=== PATIENT | female | born 1990 | race Caucasian/White ===

== ENCOUNTER 2021-05-17 13:46 | Outpatient (CLI) | payer OTHER, BC, SELFPAY ==
[2021-05-17] MEDS: BETAMETHASONE SOD PHOS/ACETATE 30 MG/5 ML VIAL 12 MG IM (14:17)
== END 2021-05-17 13:47 | disposition home or self-care (01) ==
LOC: ANHOBOP 13:57
PROVIDERS: PCP Physician Assistant; Visit Provider Obstetrics & Gynecology
DX: Z34.90 Encounter for supervision of normal pregnancy, unspecified, unspecified trimester (principal); Z3A.00 Weeks of gestation of pregnancy not specified
CPT/HCPCS: 96372; J0702

== ENCOUNTER 2021-05-18 13:56 | Outpatient (CLI) | payer OTHER, BC, SELFPAY ==
[2021-05-18] MEDS: BETAMETHASONE SOD PHOS/ACETATE 30 MG/5 ML VIAL 12 MG IM (14:11)
== END 2021-05-18 13:57 | disposition home or self-care (01) ==
LOC: ANHOBOP 14:02
PROVIDERS: PCP Physician Assistant; Visit Provider Obstetrics & Gynecology
DX: Z34.90 Encounter for supervision of normal pregnancy, unspecified, unspecified trimester (principal); Z3A.00 Weeks of gestation of pregnancy not specified
CPT/HCPCS: 96372; J0702

== ENCOUNTER 2021-06-17 15:44 | Outpatient (CLI) | payer OTHER, BC, SELFPAY ==
[2021-06-17 16:38] LABS: Hematocrit 35.7 % (37.0-47.0); Hemoglobin 11.3 g/dL (12.0-15.0); Mean Corpuscular HGB Conc 31.7 g/dl (32-36); Mean Corpuscular Volume 88.4 fl (80-100); Mean Platelet Volume 9.3 fl (7.4-10.4); Platelet Count Result 393 k/mm3 (150-375); Red Blood Count 4.04 M/mm3 (4.2-5.4); Red Cell Distribution Width 13.9 % (11.5-14.5); White Blood Count 12.8 K/mm3 (4.5-10.0)
[2021-06-18 09:26] LABS: Rapid Plasma Reagin Non-Reactive (NonReactive)
== END 2021-06-17 15:45 | disposition home or self-care (01) ==
PROVIDERS: PCP Physician Assistant; Visit Provider Obstetrics & Gynecology
DX: Z34.93 Encounter for supervision of normal pregnancy, unspecified, third trimester (principal); Z3A.00 Weeks of gestation of pregnancy not specified
CPT/HCPCS: 36415; 85027; 86592; 86850; 86900; 86901

== ENCOUNTER 2021-06-18 05:28 | Inpatient (IN) | payer OTHER, BC, SELFPAY ==
--- NOTE | 2021-06-13 16:02 | PC.NURSE ---
Verified with OR schedule and patient --C/S on 06/18/21 at 0730 for placenta previa Patient given requisition for lab draw on 06/17/21
[2021-06-18] VITALS (62 sets, daily range): BP systolic 78–136; BP diastolic 49–122; PULSE 74–212; RESP 16–18; TEMP 36.6–37.2; O2SAT 98–100; BMI 33.0
--- NOTE | 2021-06-18 06:05 | LDADM ---
This patient, Bridget De La Torre, was admitted to Labor/Delivery/Recovery 120 on 06/18/21 at 05:28. Plans for section, pain management and were discussed with patient. Patient/family oriented to hospital policies and general routines including ID bracelet, bed and alarms, visiting hours, pain management, procedures, bathroom and other care routines, personal items, smoking policy, room service/diet and guest tray routines, security routines, and visiting hours. Patient/Family are encouraged to report perceived risks to care and to ask questions if they do not understand what they are told or what they should do. See OBIX for further documentation.
[2021-06-18] MEDS: LACTATED RINGERS 1,000 ML 125 ML IV CONT ×2 (06:10→07:30)
--- NOTE | 2021-06-18 06:21 | LDADM ---
This patient, Bridget De La Torre, was admitted to Labor/Delivery/Recovery 120 on 06/18/21 at 05:28. Plans for labor, pain management and were discussed with patient. Patient/family oriented to hospital policies and general routines including ID bracelet, bed and alarms, visiting hours, pain management, procedures, bathroom and other care routines, personal items, smoking policy, room service/diet and guest tray routines, security routines, and visiting hours. Patient/Family are encouraged to report perceived risks to care and to ask questions if they do not understand what they are told or what they should do. See OBIX for further documentation.
--- NOTE | 2021-06-18 06:58 | WPDANESEPPF ---
Anes - Initial Pre Proc Eval Procedure: Operation Date: 06/18/21 07:30 Proposed Procedures p Repeat Section - Deniz Fan MD Date/Time: 06/18/21 06:58 Surgeon: Deniz Fan MD Pre Op Diagnosis: c/s Patient Data Age: 31 Gender: F Height: 1.57 m Weight: 82 kg Last Vital Signs Pulse 96 06/18/21 06:15 BP 122/81 06/18/21 06:15 Allergies Allergy/AdvReac Type Severity Reaction Status Date / Time No Known Drug Allergies Allergy unknown Verified 06/13/21 15:41 Home Medications Medication Instructions Recorded Confirmed Type vitamins-iron fumarate 65 1 tablet PO DAILY 04/29/21 06/18/21 History mg iron-folic acid 1 mg tablet sertraline 50 mg tablet 50 mg PO DAILY 04/29/21 06/18/21 History ferrous sulfate 325 mg (65 mg 325 mg PO BID tablet 06/03/21 06/18/21 History iron) tablet,delayed release Patient hx anesthesia problems: none Family hx anesthesia problems: none Results Review: All pre-operative results and documents have been reviewed as part of the pre-operative evaluation. [facility] Past Medical History Medical History Anxiety and depression History of HPV infection IBS (irritable bowel syndrome) Surgical History Surgical History H/O colposcopy with cervical biopsy (07/13/18) colposcopy Benign H/O colposcopy with cervical biopsy (01/27/17) colpo ; Benign H/O colposcopy with cervical biopsy (06/10/16) colposcopy ; Benign H/O colposcopy with cervical biopsy (04/24/15) colpo Benign H/O colposcopy with cervical biopsy (01/15/11) colpo TAMIA l History of bunionectomy of left great toe (04/19/12) Family History Family History Father Hypertension Deafness congenital Mother Autoimmune hepatitis Deafness in left ear Grandparent Graves disease Primary lung cancer Grandparent Pancreatic cancer Sibling Ulcerative colitis Social History Social History Smoking status: Never smoker Alcohol intake: never Substance use: never Additional living arrangements comments: spouse 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 Gender identity (if verbalized by the patient): Female Sexual Orientation (if Verbalized by the Patient): Straight or Heterosexual Spiritual care concerns: No Anes - Eval Final PreProcedure Day of Procedure 06/18/21 06:58 Patient weight: overweight Heart: regular rate and rhythm Lungs: clear to auscultation Airway: Mallampati scale class II Neurological: alert and oriented Last oral intake: >/= 8 hours ASA classification: II Emergent: no Anesthetic plan: proceed Anesthesia type and monitoring: regional spinal and standard monitoring Results Review: All pre-operative results and documents have been reviewed as part of the pre-operative evaluation. Informed Consent: The patient's anesthetic plan and its attendant risks and benefits were discussed with the patient/family/POA. Questions were solicited and answers provided to the satisfaction of the patient/family/POA.
[2021-06-18] MEDS: ceFAZolin 2 GM/D5W 50 ML 2 GM/50 ML BAG IVPB (07:19)
--- NOTE | 2021-06-18 07:20 | PM.IMHP ---
H&P: HPI History of Present Illness Date/Time: 06/18/21 07:20 31-year-old 1 female presents at 37 weeks for primary delivery. She has had placenta previa throughout the though no bleeding or any other issues. Also growth scans have normal. records are on the chart for review if needed. Chief Complaint: Review of Systems Review of Systems: All systems reviewed & are unremarkable except as noted in HPI and below PMFSH Past Medical History Medical History Anxiety and depression History of HPV infection IBS (irritable bowel syndrome) Surgical History Surgical History H/O colposcopy with cervical biopsy (07/13/18) colposcopy Benign H/O colposcopy with cervical biopsy (01/27/17) colpo ; Benign H/O colposcopy with cervical biopsy (06/10/16) colposcopy ; Benign H/O colposcopy with cervical biopsy (04/24/15) colpo Benign H/O colposcopy with cervical biopsy (01/15/11) colpo TAMIA l History of bunionectomy of left great toe (04/19/12) Family History Family History Father Hypertension Deafness congenital Mother Autoimmune hepatitis Deafness in left ear Grandparent Graves disease Primary lung cancer Grandparent Pancreatic cancer Sibling Ulcerative colitis Social History Social History Smoking status: Never smoker Alcohol intake: never Substance use: never Additional living arrangements comments: spouse 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 Gender identity (if verbalized by the patient): Female Sexual Orientation (if Verbalized by the Patient): Straight or Heterosexual Spiritual care concerns: No Meds Home Medications and Allergies Home Medications Medication Instructions Recorded Confirmed Type vitamins-iron fumarate 65 1 tablet PO DAILY 04/29/21 06/18/21 History mg iron-folic acid 1 mg tablet sertraline 50 mg tablet 50 mg PO DAILY 04/29/21 06/18/21 History ferrous sulfate 325 mg (65 mg 325 mg PO BID tablet 06/03/21 06/18/21 History iron) tablet,delayed release Allergies Allergy/AdvReac Type Severity Reaction Status Date / Time No Known Drug Allergies Allergy unknown Verified 06/13/21 15:41 Vital Signs Vital Signs - 24 hr 06/18/21 05:58 06/18/21 06:00 06/18/21 06:15 Pulse Rate 102 H 102 H 96 Blood Pressure 118/64 114/78 122/81 Exam Const: General: cooperative, healthy appearing and comfortable Resp: Effort & Inspection: normal respiratory effort Auscultation: clear to auscultation bilaterally Cardio: Rate: regular rate Rhythm: regular rhythm GI: Inspection: normal to inspection Auscultation: normal bowel sounds : External Female Exam: normal external appearance Speculum Exam - Vagina: normal appearance of the vagina Bimanual exam- vagina & uterus: enlarged ( 36cm heart tones 140) Assessment and Plan Assessment and plan (1) 37 weeks gestation of : Code(s): Z3A.37 - 37 weeks gestation of Status: Acute (2) Placenta previa affecting delivery: Code(s): O44.00 - Complete placenta previa NOS or without hemorrhage, unspecified trimester Status: Acute Additional Plan proceed with primary delivery.
--- NOTE | 2021-06-18 07:23 | WPDHPUPDATE1 ---
History and Physical Update Update Date/Time: 06/18/21 07:23 History and Physical has been reviewed, including an updated exam of the patient. There are NO changes in the patient's condition. Risks, benefits, and alternatives have been discussed and questions answered. Patient agrees to proceed with procedure.
--- NOTE | 2021-06-18 08:04 | PM.OBPRVD ---
OB - Delivery Note Procedure Procedure: Procedures Operation Date: 06/18/21 07:30 <No data on this case meets the specified criteria> Events: Placenta Previa Route of delivery: Specimen: Yes Quantitative Blood Loss (ml): 1,050 Anesthesia type: Epidural Disposition: PACU Narrative: Patient prepped and draped usual manner for this procedure. Pfannenstiel incision was made carried down to the fascia which was then extended bilaterally the length of the skin incision. Superiorly and inferiorly dissected away from the rectus muscles in the peritoneum was readily entered. Bladder flap was developed without difficulty uterus was scored with placenta entered and the lower segment extended bilaterally the length of the lower segment. Vertex was then delivered without difficulty and placenta was removed. Once placenta was removed the lower segment was visualized and care was taken to remove all segments of the placenta. Being assured that there was no remaining tissue and no membranes and the uterus was well contracted the uterus was then closed using 0 Monocryl in a running interlocking manner with good approximation hemostasis noted. Small area of oozing at the right edge which was rendered hemostatic with a [id number] Vicryl as well. Uterus returned to the abdomen gutters were cleared of serosanguineous fluid and clots and the fascia was then approximated using 0 Vicryl from left angle midline right angle to the midline. Subcutaneous tissue was approximated using 0 plain suture and walker were then used to close the skin this point seizure was considered terminated patient tolerated procedure well. [place] Baby Weeks of gestation at delivery: 37 Infant gender: Female Weight (pounds): 6 Weight (ounces): 12 presentation: vertex Placenta delivery description: Manual Removal Cord Vessel Description: 3 Vessels score one minute: 9 score five minutes: 9 AMG Delivery Billing Delivery Delivery: Delivery Charge
[2021-06-18 08:15] LABS: HIV 1/2 Ab P24 Ag Result Negative (Negative)
[2021-06-18] MEDS: OXYTOCIN 30 UNITS/NS 500 ML 30 UNITS/500 ML BAG 125 UNITS IV CONT (08:45)
[2021-06-18] MEDS: KETOROLAC 30 MG/ML VIAL (*BKC) IV PUSH (13:16)
--- NOTE | 2021-06-18 14:01 | PC.NURSE ---
[id number] Introductions made and consulted with patient to assess needs related to . Mother led conversation with her desire to breastfeed but isn't opposed to formula. Mother holds her infant skin to skin. Encouraged mother to touch to stimulate wakefulness and not sleep. Educated parents on the benefits of hand expression, nipple stretching, and milk production. Mother reclined and relaxed asked father of infant to hand express colostrum. Scant drops of colostrum were fed to with a gloved finger. Reviewed good handwashing when working with infant, breast, nipples and how to protect the nipples with a deep latch. Encouraged understanding the benefits of skin to skin, responding to feeding cues for on demand feedings, frequencies of feeding 8-12 times in 24 hours (approximately 2-3 hours), duration of feedings, milk production, intake/output feeding sheet and signs of adequate intake. Risks were discussed regarding infant being 37 EGA and how that pertains to latching and milk production. Discussed stimulating infant with skin to skin, hand expressing colostrum, touch and talking to infant to encourage eating at the breast. Reviewed positioning and alignment, supporting breast, off-centered (asymmetrical latch) and leading with the chin with big open wide gape. Infant doesn't show signs of effective attempts to latch to breast in football or cross cradle position with father of baby holding the maternal breast. RN encouraged mother to hold her baby to the breast and demonstrates the need for more practice. Resources used to facilitate learning were used from the visual handout/ tool/mom and baby guide. Mother voiced understanding responding to feeding cues, may need to stimulating infant approximately 2-3 hours from the start of the last feeding, calling for assistance if the infant does not latch or there discomfort . Reported to primary RN. [id number] Breast pump provided due to ineffective . Reviewed information regarding pump care, hand washing, nipple care and pumping 8 times in 24 hours (1-2 at night) for 10-15 minutes. Collection and storage of breastmilk per mom and baby guide. Encouraged mom to place infant skin to skin, breast massage and use hand expression and/or a breast pump in a relaxing atmosphere. Reviewed recording pumping schedule on the feeding sheet. Referred to the mom and baby guide as a resource and when to call a provider. Reported to primary RN.
[2021-06-19] VITALS: BP 112/64; PULSE 78; RESP 16; TEMP 37.2; O2SAT 99
[2021-06-19] MEDS: IBUPROFEN 600 MG TABLET PO ×3 (00:16→17:43)
[2021-06-19] MEDS: HYDROcodone/acetaminophen (*CRX) 5-325 MG TABLET 1 TAB PO ×3 (03:13→13:00)
[2021-06-19 03:35] VITALS: BP 107/62; PULSE 82; RESP 16; TEMP 36.7; O2SAT 97
[2021-06-19 06:12] LABS: Basophils Percent Auto 0.2 % (0.2-1.2); Eosinophils Percent Auto 0.2 % (0-4.4); Hematocrit 23.3 % (37.0-47.0); Hemoglobin 7.4 g/dL (12.0-15.0); Immature Granulocyte Percent A 0.7 % (0-0.5); Lymphocytes Absolute Auto 3.01 K/mm3 (0.9-3.2); Lymphocytes Percent Auto 22.2 % (18.3-44.2); Mean Corpuscular HGB Conc 31.8 g/dl (32-36); Mean Corpuscular Hemoglobin 28.2 pg (26-34); Mean Corpuscular Volume 88.9 fl (80-100); Mean Platelet Volume 9.6 fl (7.4-10.4); Monocytes Absolute Auto 0.8 K/mm3 (0.1-0.6); Monocytes Percent Auto 6.2 % (2.6-8.5); Neutrophils Absolute Auto 9.5 K/mm3 (1.3-6.7); Neutrophils Percent Auto 70.5 % (45.5-73.1); Platelet Count Result 283 k/mm3 (150-375); Red Blood Count 2.62 M/mm3 (4.2-5.4); White Blood Count 13.5 K/mm3 (4.5-10.0)
--- NOTE | 2021-06-19 07:23 | PM.OBPNVD ---
OB - PN: Subj Subjective Date/time seen: 06/19/21 07:23 Diet tolerated/some ambulation. No sob/cp/dizzy. Overall doing well. OB - PN: Obj Data Labs CBC & Chem 7: 06/19/21 03:40 Labs: Laboratory Results - last 24 hr 06/18/21 06/19/21 07:05 03:40 WBC 13.5 H RBC 2.62 L Hgb 7.4 L D Hct 23.3 L MCV 88.9 MCH 28.2 MCHC 31.8 L RDW 14.0 Plt Count 283 MPV 9.6 Immature Gran % (Auto) 0.7 H Neut % (Auto) 70.5 Lymph % (Auto) 22.2 [place] % (Auto) 6.2 Eos % (Auto) 0.2 Baso % (Auto) 0.2 Lymph # (Auto) 3.01 [place] # (Auto) 0.8 H Eos # (Auto) 0.0 Baso # (Auto) 0.0 Abs Immat Gran (auto) 0.10 H Absolute Neuts (auto) 9.5 H Absolute Nucleated RBC 0.0 Nucleated RBC % 0.0 HIV 1&2 Ab/P24 Ag 4thGn Negative OB - PN A/P Plan day: 1 Comments: hct drop as expected with EBL from section. Will monitor symptomatically. Time Spent With Patient Time: Total time spent is greater than 50% in coordination of care (as documented) at patient's floor/unit and/or counseling patient: Time with patient: less than 15 minutes Exam Const: General: cooperative, healthy appearing and comfortable GI: Inspection: incision (bandage dry) Auscultation: normal bowel sounds
[2021-06-19 08:00] VITALS: BP 118/77; PULSE 88; RESP 18; TEMP 36.7
[2021-06-19] MEDS: FERROUS SULFATE 324 MG TABLET PO ×2 (08:34→17:44)
[2021-06-19] MEDS: DOCUSATE SODIUM 100 MG CAPSULE PO ×2 (08:34→17:44)
[2021-06-19] MEDS: POLYSACCHARIDE IRON COMPLEX 150 MG CAPSULE PO ×2 (08:34→17:44)
[2021-06-19] MEDS: MULTIVIT/MIN/PREN/FOL AC/IRON TABLET 1 TAB PO (08:34)
[2021-06-19] MEDS: SERTRALINE HCL 50 MG TABLET PO (08:34)
--- NOTE | 2021-06-19 11:24 | WPDANLDNPN2 ---
Anes-Prog Note L&D-Neuraxial Date/Time: 06/19/21 11:24 Neuraxial medications: intrathecal PF morphine Opiod-related complaints: none Patient feedback: Patient satisfied with post-operative pain management.
--- NOTE | 2021-06-19 11:24 | WPDANLDPN2 ---
Anes-Prog Note L&D Date/Time: 06/19/21 11:24 Comfortable throughout: section Neuraxial method: spinal Epidural/Spinal procedure site: clean & non-tender Neuro status: Neuro function grossly intact. Cardiovascular status: normal Respiratory status: normal Airway patency: baseline Mental status: baseline Post-Op hydration status: normal Vital Signs: Last Vital Signs Temp 36.7 C 06/19/21 08:00 Pulse 88 06/19/21 08:00 Resp 18 06/19/21 08:00 BP 118/77 06/19/21 08:00 Pulse Ox 97 06/19/21 03:35 Pain score (VAS): 0 I/O: Intake & Output 06/18/21 06/19/21 06/19/21 23:59 07:59 15:59 Intake Total 300 600 400 Output Total 650 1950 Balance -350 -1350 400 Post-procedural complaints: none Patient feedback: Patient satisfied with anesthetic care.
--- NOTE | 2021-06-19 15:03 | PC.NURSE ---
Education given, questions answered and mom and baby guide referred to between [phone].
[2021-06-19] MEDS: HYDROcodone/acetaminophen (*CRX) 10-325 MG TABLET 1 TAB PO ×2 (17:44→20:47)
[2021-06-19] MEDS: SIMETHICONE 80 MG TAB.CHEW PO (17:44)
[2021-06-19 20:28] VITALS: BP 113/74; PULSE 92; RESP 18; TEMP 36.6; O2SAT 100
[2021-06-20] MEDS: HYDROcodone/acetaminophen (*CRX) 5-325 MG TABLET 1 TAB PO ×2 (03:14→07:15)
[2021-06-20] MEDS: IBUPROFEN 600 MG TABLET PO ×3 (07:15→16:22)
[2021-06-20] MEDS: DOCUSATE SODIUM 100 MG CAPSULE PO (07:16)
[2021-06-20] MEDS: MULTIVIT/MIN/PREN/FOL AC/IRON TABLET 1 TAB PO (07:17)
[2021-06-20] MEDS: SERTRALINE HCL 50 MG TABLET PO (07:17)
[2021-06-20] MEDS: SIMETHICONE 80 MG TAB.CHEW PO ×2 (07:17→11:30)
[2021-06-20 08:00] VITALS: PULSE 90; RESP 18; O2SAT 99
[2021-06-20 08:05] VITALS: BP 107/70; PULSE 90; RESP 18; TEMP 37.2; O2SAT 99
[2021-06-20] MEDS: HYDROcodone/acetaminophen (*CRX) 10-325 MG TABLET 1 TAB PO ×3 (11:29→16:22)
--- NOTE | 2021-06-20 12:32 | PM.OBDSVD ---
DS: Admitting Diagnosis Discharge Date 06/20/2021 Admitting Diagnosis /placenta previa OB - DS: Summary OB Procedures : None OB Procedures Intrapartum: OB Procedures: : None Peripartum Data Procedures: Procedures Operation Date: 06/18/21 07:30 Actual Procedure Side Surgeon p Repeat Section Deniz Fan MD Time Spent with Patient Time attestation: Total time spent providing and/or coordinating discharge services: DS: Data Data Completed and Pending Pending studies at discharge: Pending at discharge 06/18/21 08:32 Surgical [PTH] Routine Discharge Plan Discharge Discharging Clinician: Deniz Fan Patient Disposition: Home, Self-Care Activity: as tolerated Diet: as tolerated Wound Care Instructions: incision open to air Discharge Instructions: walker out at postop hospital appt Patient Instructions: Antibiotic Form Stand Alone Forms: General Discharge Information Follow-up/Referrals: Deniz Fan MD [Physician] - 3 Weeks Discharge Medications: New hydrocodone-acetaminophen 5-325 mg Tablet 1 tablet PO Q3H Qty: 20 RF: 0 ibuprofen 600 mg Tablet 600 mg PO Q6H PRN (Reason: Cramping) Qty: 30 RF: 0 Continued sertraline 50 mg tablet 50 mg PO DAILY RF: 0 vit-iron fum-folic ac 65 mg iron- 1 mg tablet 1 tablet PO DAILY RF: 0 ferrous sulfate 325 mg (65 mg iron) tablet,delayed release (DR/EC) 325 mg PO BID RF: 0 Date of admission: 06/18/21 05:28 Primary Care Provider: Kerri,Yessica Admitting Provider: Deniz Fan Attending physician on admission: Deniz Fan Condition: Stable
[2021-06-20] MEDS: TETANUS,DIPHTHERIA,AC PERTUSSIS ADULT (0.5 ML) BOOSTRIX IM (15:24)
[2021-06-20] MEDS: MEASLES,MUMPS,RUBELLA VACCINE 0.5 ML VIAL SUB-Q (15:28)
[2021-06-23 11:09] VITALS: BP 139/78; PULSE 90; RESP 20; TEMP 36.9; O2SAT 100
== END 2021-06-20 16:37 | disposition home or self-care (01) | DRG 788 ==
LOC: ANHLDR 05:32 → ANHOB2 10:39
PROVIDERS: Admitting Provider Obstetrics & Gynecology; PCP Physician Assistant; Visit Provider Obstetrics & Gynecology
PROC: 10D00Z1 Extraction of Products of Conception, Low, Open Approach (ICD-10-PCS; CPT 59514; principal; 2021-06-18 07:30)
DX: O44.03 Complete placenta previa NOS or without hemorrhage, third trimester (principal); Z37.0 Single live birth; Z3A.37 37 weeks gestation of pregnancy; O99.62 Diseases of the digestive system complicating childbirth; K58.9 Irritable bowel syndrome, unspecified; O99.344 Other mental disorders complicating childbirth; F41.9 Anxiety disorder, unspecified; F32.A Depression, unspecified
CPT/HCPCS: 36415; 85025; 85027; 86592; 86703; 86850; 86900; 86901; 88307; 90710; 90715; A9270; G0432; J0131; J0690; J1885; J2274; J2590; J7120

== ENCOUNTER 2023-03-23 03:03 | Day surgery (SDC) | payer OTHER, SELFPAY ==
[2023-03-19 10:59] VITALS: BMI 23.8
--- NOTE | 2023-03-19 11:03 | PC.NURSE ---
Report to the Outpatient Waiting Room, entrance under the green pavilion located off [facility], at time 0630 on date 03/23/23. Planned Procedure Time: 0830. Time changes happen often and if your time is changed the preop area will call you the afternoon before. - You and your visitor will be asked to self-screen and do not enter if you have any COVID symptoms. - A mask is optional within the hospital at this time. Patients may have clear liquids (water, carbonated beverages, clear teas, apple juice) until 3 hours prior to surgery with a maximum of 20 ounces. - No food from midnight until time of surgery Take the following medications with a SIP of water the morning of surgery: WELLBUTRIN DO NOT STOP ANY OF YOUR OTHER PRESCRIPTION MEDICATIONS PRIOR TO SURGERY ?EXCEPT THE FOLLOWING Medications to discontinue per physician: N/A Date to take last dose: N/A Please no make-up, nail palestinian, hairspray, perfume, deodorant, or body powder the day of surgery. No jewelry (including any body piercings) or valuables the day of surgery, leave them at home. Please take a shower or bath the night before, or the morning of, surgery with an antibacterial soap. Wear comfortable, loose fitting clothing. Children are encouraged to wear pajamas. - Jewelry must be removed prior to entering the operating room. Rings and piercings that are not removed may be cut off. - The hospital will not accept responsibility for valuables. - Please leave all valuables, including medications, at home the day of surgery. If you are going home after surgery, a licensed rolloff truck driver must drive you home. - NO public transportation without another adult if you receive anesthesia. - We recommend that an adult stay with you for 24 hours following discharge. - We also recommend that you do not drive, make important decision, drink alcoholic beverages, or take any drugs that were not prescribed by your health care provider for at least 24 hours after your discharge time. Follow any additional instructions given to you from your surgeon. If you or anyone in your household have experienced Covid symptoms in the past week, please notify your surgeon or the nurse liaison at the phone number below for possible testing. Telephone instructions given to PT - [facility] [place] and asked if any additional questions and then verbalized understanding. Patient advised to call surgeon office or pre surgery nurse liaison [phone] if any additional questions.
[2023-03-23] VITALS (9 sets, daily range): BP systolic 119–155; BP diastolic 75–92; PULSE 73–96; RESP 14–18; TEMP 36.1–36.7; O2SAT 99–100
--- NOTE | 2023-03-23 06:27 | WPDANESEPP ---
Anes - Eval Pre Procedure Procedure: Operation Date: 03/23/23 08:30 Proposed Procedures p Bilateral Breast Mastopexy with GalaFlex - Simon Dobson MD Date/Time: 03/23/23 06:27 Pre Op Diagnosis: breast ptosis Patient Data Age: 33 Gender: F Height: 1.57 m Weight: 59 kg Allergies Allergy/AdvReac Type Severity Reaction Status Date / Time No Known Drug Allergies Allergy unknown Verified 03/19/23 10:58 Home Medications Medication Instructions Recorded Confirmed Type bupropion HCl 150 mg 24 hr tablet, 150 mg PO DAILY 03/19/23 03/19/23 History extended release Patient hx anesthesia problems: none Family hx anesthesia problems: none Results Review: All pre-operative results and documents have been reviewed as part of the pre-operative evaluation. [facility] Past Medical History Medical History Anxiety and depression History of HPV infection IBS (irritable bowel syndrome) Surgical History Surgical History Delivery by section (06/18/21) placenta previa H/O colposcopy with cervical biopsy (07/13/18) colposcopy Benign H/O colposcopy with cervical biopsy (01/27/17) colpo ; Benign H/O colposcopy with cervical biopsy (06/10/16) colposcopy ; Benign H/O colposcopy with cervical biopsy (04/24/15) colpo Benign H/O colposcopy with cervical biopsy (01/15/11) colpo TAMIA l History of bunionectomy of left great toe (04/19/12) Family History Family History Father Hypertension Deafness congenital Mother Autoimmune hepatitis Deafness in left ear Grandparent Graves disease Primary lung cancer Grandparent Pancreatic cancer Sibling Ulcerative colitis Social History Social History Smoking status: Never smoker Alcohol intake: current Drinks per week: 3 Substance use: never Substance use type: does not use Living arrangements: with family Additional living arrangements comments: spouse Occupation/Education: occupation 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
[2023-03-23] MEDS: LACTATED RINGERS 1,000 ML 30 ML IV CONT ×2 (07:03→11:26)
[2023-03-23 07:16] LABS: Urine Cotinine NEGATIVE
--- NOTE | 2023-03-23 07:17 | WPDHPUPDATE1 ---
History and Physical Update Update Date/Time: 03/23/23 07:17 History and Physical has been reviewed, including an updated exam of the patient. There are NO changes in the patient's condition. Risks, benefits, and alternatives have been discussed and questions answered. Patient agrees to proceed with procedure.
--- NOTE | 2023-03-23 07:17 | W.PM.PROC2 ---
Procedure Note - Detailed Date of Procedure 03/23/23 Pre-op Diagnosis breast ptosis Post-op Diagnosis Same Procedure Performed Bilateral mastopexy with Galaflex Surgeon Simon Dobson MD Anesthesia General Findings Inverted T Superior Medial Pedicle Galaflex Description of Procedure She is here today for bilateral breast mastopexy. Previously and again today the risks, benefits, alternatives were discussed in extensive detail. I wanted her to be very realistic about the risks involved as well as expectations. We discussed aftercare and what to monitor for. Made sure answered all of her questions to her satisfaction today and consent was obtained. Marked in the preoperative holding area with their verification. The patient was taken to the operating room placed supine on the operating table. Anesthesia was provided by anesthesiology. A surgical time-out was taken. She was prepped and draped in a standard sterile fashion. Eleven blade was utilized to make a stab incision and infiltrated with low volume tumescent solution. The breast was tailor tacked into place. I tailor tacked the breast into position. Placed her in a sitting position. Verified the nipple-areolar location based on preoperative planning as well as intraoperative observations and measurements in full agreement. She was placed supine. I de-epithelialized the pedicle. I then de-epithelialized the inferior breast tissue to create an autoaugmentation flap based on intercostal scale and skip car operator. I elevated medial and lateral tissue flaps as well for planned closure. The autoaugmentation flap was sutured to the chest wall with 2-0 PDS. Galaflex was soaking on the back table in a betadine solution. Trimmed and sutured into place with 2-0 Vicryl. I closed along the IMF with 2-0 Stratafix. Along the vertical with 2-0 PDS. I closed around the Kvng with 3-0 strata fix. 3-0 Monocryl along the vertical. 3-0 Stratafix along the IMF. I finally closed everything with running subcuticular 4-0 Monocryl and tissue glue. Fluffs and surgical bra were placed. Estimated Blood Loss 100 Drains No Packing No Pathology None sent Complications No immediate complications Condition Stable Disposition PACU
[2023-03-23] MEDS: SCOPOLAMINE 1.5 MG PATCH TRANSDERM (07:22)
[2023-03-23] MEDS: NACL 0.9% IRRIG POUR BOTTLE 900 ML, GENTAMICIN SULFATE INJ 160 MG, ceFAZolin 2 GM, POVI... IRRIGATION (08:17)
[2023-03-23] MEDS: ceFAZolin 2 GM/D5W 50 ML 2 GM/50 ML BAG IVPB (08:17)
[2023-03-23] MEDS: LACTATED RINGERS IRRIG 1,000 ML, LIDOCAINE HCL 1% LOCAL INJ 50 ML, EPINEPHrine HCL INJ ... INFILTRATE (08:17)
[2023-03-23] MEDS: TRANEXAMIC ACID 1,000MG/ISO100 1,000 MG/100 ML BAG 200 MG IVPB (08:25)
[2023-03-23] MEDS: fentaNYL CITRATE INJ (*CRX) 100 MCG/2 ML VIAL 25 MCG IV PUSH ×5 (11:26→12:06)
[2023-03-23] MEDS: oxyCODONE HCL (*CRX) 5 MG TAB IR PO (12:35)
== END 2023-03-23 13:28 | disposition home or self-care (01) ==
PROVIDERS: PCP Physician Assistant; Visit Provider Surgery Plastic and Reconstructive Surgery
PROC: (CPT 19316; principal; 2023-03-23 08:30)
DX: Z41.1 Encounter for cosmetic surgery (principal); F41.8 Other specified anxiety disorders; K58.9 Irritable bowel syndrome, unspecified; Z98.890 Other specified postprocedural states; Z80.1 Family history of malignant neoplasm of trachea, bronchus and lung; Z80.0 Family history of malignant neoplasm of digestive organs
CPT/HCPCS: 19316; 15777; 80307; A9270; J0171; J0690; J1100; J1170; J1580; J2250; J2405; J2704; J3010; J7120

== ENCOUNTER 2023-12-06 02:16 | Day surgery (SDC) | payer OTHER, BC, SELFPAY ==
--- NOTE | 2023-12-01 10:27 | PC.NURSE ---
Report to the Outpatient Waiting Room, entrance under the green pavilion located off [facility], at time __0630 on date ____12/06/23___. Planned Procedure Time: ____829____. Time changes happen often and if your time is changed the preop area will call you the afternoon before. - You and your visitor will be asked to self-screen and do not enter if you have any COVID symptoms. - A mask is optional within the hospital at this time. Patients may have clear liquids (water, carbonated beverages, clear teas, apple juice) until 3 hours prior to surgery with a maximum of 20 ounces. - No food from midnight until time of surgery Take the following medications with a SIP of water the morning of surgery: Wellbutin if needed DO NOT STOP ANY OF YOUR OTHER PRESCRIPTION MEDICATIONS PRIOR TO SURGERY ?EXCEPT THE FOLLOWING Medications to discontinue per physician NA Date to take last dose Please no make-up, nail frisian, hairspray, perfume, deodorant, or body powder the day of surgery. No jewelry (including any body piercings) or valuables the day of surgery, leave them at home. Please take a shower or bath the night before, or the morning of, surgery with an antibacterial soap. Wear comfortable, loose fitting clothing. Children are encouraged to wear pajamas. - Jewelry must be removed prior to entering the operating room. Rings and piercings that are not removed may be cut off. - The hospital will not accept responsibility for valuables. - Please leave all valuables, including medications, at home the day of surgery. If you are going home after surgery, a licensed class a truck driver must drive you home. - NO public transportation without another adult if you receive anesthesia. - We recommend that an adult stay with you for 24 hours following discharge. - We also recommend that you do not drive, make important decision, drink alcoholic beverages, or take any drugs that were not prescribed by your health care provider for at least 24 hours after your discharge time. Follow any additional instructions given to you from your surgeon. If you or anyone in your household have experienced Covid symptoms in the past week, please notify your surgeon or the nurse liaison at the phone number below for possible testing. Telephone instructions given to ____patient and asked if any additional questions and then verbalized understanding. Patient advised to call surgeon office or pre surgery nurse liaison [phone] if any additional questions.
[2023-12-01 10:35] VITALS: BMI 25.6
--- NOTE | 2023-12-05 21:11 | PM.IMHP ---
H&P: HPI History of Present Illness Date/Time: 12/05/23 21:11 Chief Complaint: TAMIA 2-3 Narrative: Bridget is a 33yo P1001 who presents for LEEP. Her last two paps had been NILM/HPV +. This year's pap was LGSIL/HPV +. She had a colpo 11/11/23 which showed TAMIA 2-3 on ECC; TAMIA 1 on biopsies at 3, 6, 9 o'clock. She has had the Gardasil series. has vasectomy. Review of Systems Constitutional: Constitutional: Denies chills, Denies fever(s) and Denies headache(s) Eyes: Eyes: Denies change in vision ENT: Denies dizziness and Denies headache(s) Cardiovascular: Cardiovascular: Denies chest pain and Denies dyspnea Respiratory: Respiratory: Denies cough and Denies dyspnea Gastrointestinal: Gastrointestinal: Denies abdominal pain and Denies change in stool character Genitourinary: Genitourinary: Denies abnormal menses, Denies pelvic pain, Denies vaginal discharge, Denies vaginal odor and Denies vaginal pruritus Neurologic: Denies dizziness and Denies headache(s) Psychiatric: Psychiatric: Denies anxiety and Denies depression [facility] Past Medical History Medical History (Updated 12/05/23 @ 21:16 by Jen Melendez MD) Anxiety and depression History of HPV infection IBS (irritable bowel syndrome) Surgical History Surgical History Delivery by section (06/18/21) placenta previa H/O colposcopy with cervical biopsy (07/13/18) colposcopy Benign H/O colposcopy with cervical biopsy (01/27/17) colpo ; Benign H/O colposcopy with cervical biopsy (06/10/16) colposcopy ; Benign H/O colposcopy with cervical biopsy (04/24/15) colpo Benign H/O colposcopy with cervical biopsy (01/15/11) colpo TAMIA l History of bunionectomy of left great toe (04/19/12) S/P bilateral breast reduction Family History Family History Father Hypertension Deafness congenital Mother Autoimmune hepatitis Deafness in left ear Grandparent Graves disease Primary lung cancer Grandparent Pancreatic cancer Sibling Ulcerative colitis Social History Social History (Updated 09/16/23 @ 13:33 by Sophia Walden MA) Smoking status: Never smoker Alcohol intake: current Drinks per week: 3 Substance use: never Substance use type: does not use Do You Feel Safe in your Home?: Yes Lack of Transportation: No Lack of Food: Never True Current Housing: I Have Housing Concerned About Future Housing: No Difficulty Paying Gas/Electric Bills: No Difficulty Paying for Meds: No Currently Unemployed: No Education: Associate Degree Difficulty w/ Childcare or Family Care: No Living arrangements: with family Additional living arrangements comments: spouse Occupation/Education: occupation 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 Gender identity (if verbalized by the patient): Female Sexual Orientation (if Verbalized by the Patient): Straight or Heterosexual Spiritual care concerns: No Meds Home Medications and Allergies Home Medications Medication Instructions Recorded Confirmed Type bupropion HCl 150 mg 24 hr tablet, 150 mg PO DAILY 03/19/23 12/01/23 History extended release Allergies Allergy/AdvReac Type Severity Reaction Status Date / Time No Known Drug Allergies Allergy unknown Verified 12/01/23 10:22 Exam Const: General: cooperative, healthy appearing, comfortable and no acute distress Orientation/consciousness: patient oriented x3 Resp: Effort & Inspection: normal respiratory effort Cardio: Rate: regular rate GI: Inspection: normal to inspection GI Palp: No abdominal tenderness and Yes Soft to palpation : Other: deferred to OR Skin: General skin exam: normal color Neuro: General: patient oriented x3 Extrem: General: normal to inspection Psych: Appearance: grossly normal Affect: normal affect Attitude: cooperative Assessment
[2023-12-06 07:00] VITALS: BP 159/90; PULSE 94; RESP 14; TEMP 36.5; O2SAT 100
[2023-12-06] MEDS: LACTATED RINGERS 1,000 ML 30 ML IV CONT (07:00)
[2023-12-06] MEDS: ACETAMINOPHEN 500 MG TABLET 1000 MG PO (07:00)
--- NOTE | 2023-12-06 07:14 | WPDHPUPDATE1 ---
History and Physical Update Update Date/Time: 12/06/23 07:14 History and Physical has been reviewed, including an updated exam of the patient. There are NO changes in the patient's condition. Risks, benefits, and alternatives have been discussed and questions answered. Patient agrees to proceed with LEEP, top hat, and ECC. .
--- NOTE | 2023-12-06 07:42 | WPDANESEPPF ---
Anes - Initial Pre Proc Eval Procedure: Operation Date: 12/06/23 08:30 Proposed Procedures p Loop Electrical Excision Procedure - Jen Melendez MD Date/Time: 12/06/23 07:42 Surgeon: Jen Melendez MD Pre Op Diagnosis: Cervical Dysplasia Patient Data Age: 33 Gender: F Height: 1.57 m Weight: 63.6 kg Allergies Allergy/AdvReac Type Severity Reaction Status Date / Time No Known Drug Allergies Allergy unknown Verified 12/01/23 10:22 Home Medications Medication Instructions Recorded Confirmed Type bupropion HCl 150 mg 24 hr tablet, 150 mg PO DAILY 03/19/23 12/01/23 History extended release Patient hx anesthesia problems: none Family hx anesthesia problems: none Results Review: All pre-operative results and documents have been reviewed as part of the pre-operative evaluation. [facility] Past Medical History Medical History (Updated 12/05/23 @ 21:16 by Jen Melendez MD) Anxiety and depression History of HPV infection IBS (irritable bowel syndrome) Surgical History Surgical History Delivery by section (06/18/21) placenta previa H/O colposcopy with cervical biopsy (07/13/18) colposcopy Benign H/O colposcopy with cervical biopsy (01/27/17) colpo ; Benign H/O colposcopy with cervical biopsy (06/10/16) colposcopy ; Benign H/O colposcopy with cervical biopsy (04/24/15) colpo Benign H/O colposcopy with cervical biopsy (01/15/11) colpo TAMIA l History of bunionectomy of left great toe (04/19/12) S/P bilateral breast reduction Family History Family History Father Hypertension Deafness congenital Mother Autoimmune hepatitis Deafness in left ear Grandparent Graves disease Primary lung cancer Grandparent Pancreatic cancer Sibling Ulcerative colitis Social History Social History (Updated 09/16/23 @ 13:33 by Sophia Walden MA) Smoking status: Never smoker Alcohol intake: current Drinks per week: 3 Substance use: never Substance use type: does not use Do You Feel Safe in your Home?: Yes Lack of Transportation: No Lack of Food: Never True Current Housing: I Have Housing Concerned About Future Housing: No Difficulty Paying Gas/Electric Bills: No Difficulty Paying for Meds: No Currently Unemployed: No Education: Associate Degree Difficulty w/ Childcare or Family Care: No Living arrangements: with family Additional living arrangements comments: spouse Occupation/Education: occupation 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 Gender identity (if verbalized by the patient): Female Sexual Orientation (if Verbalized by the Patient): Straight or Heterosexual Spiritual care concerns: No Anes - Eval Final PreProcedure Day of Procedure 12/06/23 07:42 Patient weight: normal Heart: regular rate and rhythm Lungs: clear to auscultation Airway: Mallampati scale class II Neurological: alert and oriented Last oral intake: >/= 8 hours ASA classification: II Emergent: no Anesthetic plan: proceed Anesthesia type and monitoring: general GIVS and standard monitoring Results Review: All pre-operative results and documents have been reviewed as part of the pre-operative evaluation. Informed Consent: The patient's anesthetic plan and its attendant risks and benefits were discussed with the patient/family/POA. Questions were solicited and answers provided to the satisfaction of the patient/family/POA.
[2023-12-06 07:57] LABS: BEDSIDEPREGUCG Negative
[2023-12-06] MEDS: IODINE/POTASSIUM IODIDE 8 ML SOLUTION TOPICAL (08:28)
[2023-12-06] MEDS: BUPIVACAINE/EPINEPHRINE 0.5% 10 ML VIAL INFILTRATE (08:28)
--- NOTE | 2023-12-06 08:58 | W.PM.PROC2 ---
Procedure Note - Detailed Date of Procedure 12/06/23 Pre-op Diagnosis Cervical Dysplasia Post-op Diagnosis Same Procedure Performed LEEP, top hat, ECC Surgeon Jen Melendez MD Anesthesia MAC and Local (10cc of 0.5% Marcaine with epi) Findings No area's that did not take up Lugol's solution. Good hemostasis at end of case. Description of Procedure Bridget was taken to the operating room where she was placed under MAC sedation without complications. She was then prepped and draped in the normal fashion in the dorsal lithotomy position with her legs in low Slava stirrups. A time-out was performed and no preoperative antibiotics were indicated. A coated speculum attached to suction was then placed within the vagina, where the cervix was easily identified. The cervix was then injected with 0.5% Marcaine with epinephrine (10cc were used). Lugol?s solution was then applied to the cervix. The cervix was noted to take up the Lugol's in all areas (but we knew the area of abnormalities was within the canal). The LEEP was then obtained in a single swipe from the patient?s left to right. The LEEP was removed and a silk stitch was placed at 12:00 p.m. to orient the tissue for pathology. A top-hat was then obtained in the same manner. A silk stitch was then placed at 12:00 p.m. An ECC was then collected. The LEEP bed was then cauterized using the roller ball. Good hemostasis was noted. Sponge, lap, instrument, and needle counts were correct at the end of the procedure. The patient was awoken from anesthesia and taken to recovery in a stable condition with plans of same-day discharge home. Estimated Blood Loss 10 IV Fluids 800 Pathology Yes (LEEP & top hats (stitch both at 12o'clock), ECC) Complications No immediate complications Condition Stable Disposition Same day [facility] Billing Surgery - Charge Forward: Surgery Billing
[2023-12-06 09:00] VITALS: BP 115/69; PULSE 84; RESP 16; O2SAT 99
[2023-12-06 09:30] VITALS: BP 120/87; PULSE 86; RESP 20; O2SAT 100
[2023-12-06] MEDS: oxyCODONE HCL (*CRX) 5 MG TAB IR PO (09:34)
[2023-12-06 09:50] VITALS: BP 140/90; PULSE 79; RESP 20
== END 2023-12-06 09:57 | disposition home or self-care (01) ==
PROVIDERS: PCP Physician Assistant; Visit Provider Obstetrics & Gynecology
PROC: 0UBC7ZZ Excision of Cervix, Via Natural or Artificial Opening (ICD-10-PCS; CPT 57522; principal; 2023-12-06 08:30)
DX: N87.1 Moderate cervical dysplasia (principal); F41.8 Other specified anxiety disorders; K58.9 Irritable bowel syndrome, unspecified; Z98.890 Other specified postprocedural states; Z80.1 Family history of malignant neoplasm of trachea, bronchus and lung; Z80.0 Family history of malignant neoplasm of digestive organs
CPT/HCPCS: 57522; 88305; 88307; A9270; J2250; J2704; J3010; J7120

== ENCOUNTER 2024-12-04 01:55 | Day surgery (SDC) | payer OTHER, BC, SELFPAY ==
[2024-11-23 11:30] VITALS: BMI 25.6
--- NOTE | 2024-11-23 11:38 | PC.NURSE ---
Report to the Outpatient Waiting Room, entrance under the green pavilion located off [facility], at time _0615_ on date _[id number]_. Planned Procedure Time: _0815_.? Time changes happen often and if your time is changed the preop area will call you the afternoon before. - You and your visitor will be asked to self-screen and do not enter if you have any COVID symptoms. Please call surgeon if you need to reschedule. - A mask is optional within the hospital at this time. Patients may have clear liquids (water, carbonated beverages, clear teas, apple juice) until 3 hours prior to surgery with a maximum of 20 ounces. - No food from midnight until time of surgery and no smoking, or chewing tobacco (or any form of nicotine). No chewing gum, candy or mints. Take only the following medications with a SIP of water on the morning of surgery: __Metoprolol DO NOT STOP ANY OF YOUR OTHER PRESCRIPTION MEDICATIONS PRIOR TO SURGERY EXCEPT THE FOLLOWING Hold all vitamins and supplements for 3 days per anesthesiologist. Medications to discontinue per physician Date to take last dose Please no make-up, nail north korean, hairspray, perfume, deodorant, or body powder the day of surgery.? No jewelry (including any body piercings) or valuables the day of surgery, leave them at home.? Please take a shower or bath the night before, or the morning of, surgery with an antibacterial soap.? Wear comfortable, loose fitting clothing.? - Jewelry must be removed prior to entering the operating room.? Rings and piercings that are not removed may be cut off. - The hospital will not accept responsibility for valuables.? - Please leave all valuables, including medications, at home the day of surgery. If you are going home after surgery, a licensed helper/driver must drive you home.? - NO public transportation without another adult if you receive anesthesia. - We recommend that an adult stay with you for 24 hours following discharge. - We also recommend that you do not drive, make important decision, drink alcoholic beverages, or take any drugs that were not prescribed by your health care provider for at least 24 hours after your discharge time. Follow any additional instructions given to you from your surgeon. Telephone instructions given to __Whitney__and asked if any additional questions and then verbalized understanding. Patient advised to call surgeon office or pre surgery nurse liaison [phone] if any additional questions.
--- NOTE | 2024-12-03 14:07 | PM.IMHP ---
H&P: HPI History of Present Illness Date/Time: 12/03/24 14:07 Chief Complaint: incisional mass Narrative: Bridget is a 34yo P1001, LMP 10/12/24 who presented for WWE in October 2024. She reports her cycles are regular, slightly heavy the first couple days, not but too painful. She had TAMIA 2; s/p LEEP 11/2023 (margins negative). She denies any pelvic pain. No vaginal issues. She is sexually active w/o issue; has vasectomy. She denies any breast issues; had reduction/lift. But on the left edge of her scar, she has a lump that was previously the size of a pea, has increased to bigger than a gumball. It flares up and becomes very tender on her cycle; wondering about endometriosis. She had an US and confirmed that the incisional mass appears to be endometriosis. Review of Systems Constitutional: Constitutional: Denies chills, Denies fever(s) and Denies headache(s) Eyes: Eyes: Denies change in vision ENT: Denies dizziness and Denies headache(s) Cardiovascular: Cardiovascular: Denies chest pain and Denies dyspnea Respiratory: Respiratory: Denies cough and Denies dyspnea Gastrointestinal: Gastrointestinal: Denies abdominal pain and Denies change in stool character Genitourinary: Genitourinary: Denies abnormal menses, Denies pelvic pain, Denies vaginal discharge, Denies vaginal odor and Denies vaginal pruritus Integumentary/Breasts: Skin/Breast: Reports skin swelling (left side of scar) Neurologic: Denies dizziness and Denies headache(s) Psychiatric: Psychiatric: Denies anxiety and Denies depression [facility] Past Medical History Medical History History of HPV infection IBS (irritable bowel syndrome) Anxiety and depression Surgical History Surgical History H/O LEEP 12/06/23 S/P bilateral breast reduction Delivery by section (06/18/21) placenta previa History of bunionectomy of left great toe (04/19/12) H/O colposcopy with cervical biopsy (01/15/11) colpo TAMIA l H/O colposcopy with cervical biopsy (04/24/15) colpo Benign H/O colposcopy with cervical biopsy (06/10/16) colposcopy ; Benign H/O colposcopy with cervical biopsy (01/27/17) colpo ; Benign H/O colposcopy with cervical biopsy (07/13/18) colposcopy Benign Family History Family History Father Hypertension Deafness congenital Mother Autoimmune hepatitis Deafness in left ear Grandparent Graves disease Primary lung cancer Grandparent Pancreatic cancer Sibling Ulcerative colitis Social History Social History (Updated 11/02/24 @ 14:15 by Carson Ravi MA) Smoking status: Never smoker Alcohol intake: current Drinks per week: 3 Alcohol use details: socially Substance use: never Substance use type: does not use Do You Feel Safe in your Home?: Yes Lack of Transportation: No Lack of Food: Never True Current Housing: I Have Housing Concerned About Future Housing: No Difficulty Paying Gas/Electric Bills: No Difficulty Paying for Meds: No Currently Unemployed: No Education: Associate Degree Difficulty w/ Childcare or Family Care: No Living arrangements: with family Additional living arrangements comments: spouse Occupation/Education: occupation 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 Gender identity (if verbalized by the patient): Female Sexual Orientation (if Verbalized by the Patient): Straight or Heterosexual Spiritual care concerns: No Meds Home Medications and Allergies Home Medications ?Medication ?Instructions ?Recorded ?Confirmed ?Type metoprolol succinate 25 mg 25 mg PO DAILY 11/02/24 11/23/24 History tablet,extended release 24 hr Lactobacillus acidophilus 10 10,000 mmu cells PO DAILY 11/23/24 11/23/24 History billion cell capsule (Probacap) Allergies Allergy/AdvReac Type Severity Reaction Status Date / Time No Known Drug Allergies Allergy unknown Verified 11/23/24 11:29 Exam Const: General: cooperative, healthy appearing, comfortable and no acute distress Orientation/consciousness: patient oriented x3 Resp: Effort & Inspection: normal respiratory effort Cardio: Rate: regular rate GI: Inspection: normal to inspection GI Palp: No abdominal tenderness and Yes Soft to palpation : Other: deferred to OR Skin: General skin exam: normal color Neuro: General: patient oriented x3 Extrem: General: normal to inspection Psych: Appearance: grossly normal Affect: normal affect Attitude: cooperative Assessment and Plan Assessment and plan (1) Endometriosis of anterior abdominal wall: Code(s): N80.C19 - Endometriosis of the anterior abdominal wall, unspecified depth Status: Acute Plan - soft tissue US and symptoms consistent w/ endo of her incision; pt would like it excised as it has drastically grown and become painful. - proceed with excision of soft tissue/incisional mass - risks and benefits discussed in detail
[2024-12-04] VITALS (9 sets, daily range): BP systolic 111–140; BP diastolic 63–86; PULSE 59–86; RESP 14–16; TEMP 36.1–36.7; O2SAT 96–100
--- OUTSIDE RECORDS SUMMARY | 2024-12-04 01:57 | XMS_ITS | Clinical Summary ---
Author Organization [facility] Address [address] [place] [address] Care Team Providers Care Planner Internship Name Role Phone Yessica Rios Primary Care Pr ovider Source Comments [facility],non-owned Affiliates and Associated Physician Practices is amultiple site organization consisting of ambulatory clinics and hospital sitesin [place], [place], [place] and [place]. This disclosure is being madepursuant to the Care Everywhere program and may not contain all information available regarding this patient. Last updated 18.[facility] [employer] Social History Tobacco Use Types Packs/Day Years Used Date Smoking Tobacco: Never Assessed Comments Unknown Sex and Gender Information Value Date Recorded Sex Assigned at Not on file Legal Sex Female 6:56 AM [employer] Gender Identity Not on file Sexual Orientation Not on file Last Filed Vital Signs Vital Sign Reading Time Taken Comments Blood Pressure 116/72 05/03/2014 11:00 AM [employer]AR INST[employer] PV Pulse 99 05/03/2014 11:00 AM SOLAR INSTALL[employer] PV Temperature 36.4 C (97.5 F) 05/21/2014 9:05 AM [employer]AR INST[employer] PV Respiratory Rate 18 05/03/2014 11:00 AM SOLAR INSTALLER PV Oxygen Saturation 95% 05/03/2014 11:05 AM SOLAR INSTALLER PV Inhaled Oxygen Concentration - - Weight 57.6 kg (127 lb) 05/21/2014 9:05 AM SOLAR INSTALLER PV Height 157.5 cm (5' 2) 05/21/2014 9:05 AM SOLAR INSTALLER PV Body Mass Index 23.23 05/21/2014 9:05 AM SOLAR INSTALLER PV Plan of Treatment Health Maintenance Due Date Last Done Comments HIV SCREENING 01/30/2003 HEPATITIS C SCREENING 01/26/2006 DTAP/TDAP/TD VACCINES (1 - Tdap) 01/30/2007 HEPATITIS B VACCINE (1 of 3 - 19+ 3-dose series) 01/30/2007 PAP SMEAR 01/30/2009 HPV VACCINE (1 - 3-dose SCDM series) 01/30/2015 COVID-19 VACCINE (1 - 2023-2 5 season) 2023 DEPRESSION SCREENING 04/19/2024 INFLUENZA VACCINE (#1) 2024 ZOSTER VACCINE (1 of 2) 01/30/2038 HIB VACCINE Aged Out No longer eligi ble based on patient's age to complete this topic MENINGOCOCCAL (Group B) VACC INE SHARED DECISION-MAKING Aged Out No longer eligibl e based on patient's age to complete this topic MENINGOCOCCAL GROUPS A/C/Y/W VACCINE Aged Out No longer eligible b ased on patient's age to complete this topic PNEUMOCOCCAL VACCINE Aged Out No long er eligible based on patient's age to complete this topic Insurance CIG SELF PAY NO INSURANCE Member Subscriber Plan / Payer (Ef fective for All Dates) Name:Clive De La Torre Member ID:Not on file Relation to Subscriber:Not on file Name:CLIVE DE LA TORRE Subscriber ID:Not on file (Home) Address: [address] [place] [address] Payer ID:Not on file Group ID:Not on file Type:Self Pay Address: [place], [place] NEL [facility] Care Teams Planner Internship Relationship Specialty Start Date End Date Yessica Rios PA [address] [place] [id number] PCP - General 06/20/21
--- OUTSIDE RECORDS SUMMARY | 2024-12-04 01:57 | XMS_ITS | Clinical Summary ---
Author Organization [facility] Address [address] [place] [address] Care Team Providers Care Environmental Technical Officer Name Role Phone Yessica Manning Primary Care Pr ovider Allergies No known active allergies Medications metoprolol XL (TOPROL-XL) 25 mg extended release tablet Take 1 tablet (25 mg total) by mouth daily 01/13/2024 Active Active Problems Problem Noted Date Diagnosed Date S/P laparoscopic cholecystectomy 03/08/2024 Encounter for laboratory testing for COVID-19 vi lucia 10/25/2019 Eosinophilic colitis 10/16/2019 Overview (10/16/2019): Added automatically from request for surgery [id number] 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 We have discussed postoperative work restrictions. We have discussed issues such as post cholecystectomy diarrhea. All questions answered. Preadmission testing will be sent in. Consent to be obtained. Encounters Date Type Department Care Team Description 11/28/2024 12:43 PM CDT - 11/28/2024 11:59 PM CDT Hospital Encounter [facility] [address] [place] [address] Hypertension, unspecified type Discharge Disposition: Discharge to home or self care 11/03/2024 9:06 AM CDT - 11/03/2024 11:59 PM CDT Hospital Encounter [facility] [address] [place] [address] Endometriosis of anterior abdominal wall Discharge Disposition: Discharge to home or self care from Last 3 Months Immunizations Immunization Administration Dates Next Due Influenza, Quadrivalent, Split, Intramuscular Influenza, Trivalent, IM (MDV) 02/25/2014,2012 Surgical History Surgery Date Site/Laterality Comments BUNIONECTOMY Bilateral BREAST SURGERY Bilateral Breast Reduction SECTION 04/19/2021 - 04/18/2022 1 Medical History Medical History Date Comments Chronic diarrhea Depression Hypertension Irritable bowel syndrome Anxiety Calculus of gallbladder without cholecystitis wi thout obstruction 02/08/2024 Family History Medical History Relation Name Comments Hypertension Father Hypertension; Other Mother Autoimmune hepa titis; Ulcerative colitis Sister Ulcerativ e colitis; Relation Name Status Comments Father Mother Sister Social History Tobacco Use Types Packs/Day Years Used Date Smoking Tobacco: Never Smokeless Tobacco: Never Tobacco Cessation:Counseling Given: Not Answered Alcohol Use Standard Drinks/Week Comments Yes 0 (1 standard drink = 0.6 oz pur e alcohol) socially AUDIT-C Answer Date Recorded Q1: How often do you have a drink containing alc ohol? 2-4 times a month 02/25/2024 Q2: How many drinks containi ng alcohol do you have on a typical day when you are drinking? 1 or 2 02/25/2024 Q3: How often do you have si x or more drinks on one occasion? Never 02/25/2024 Personal Safety Answer Date Recorded Have you ever been in or are you currently in a harmful physical or emotional relationship or is someone making you feel afraid or unsafe? 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5 cm (5' 2) 03/07/2024 10:52 AM 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 Body Mass Index 26.89 03/07/2024 10:52 AM 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 Plan of Treatment Health Maintenance Due Date Last Done Comments Cervical Cancer Screening 1990 Depression Screening 1990 Hepatitis C Screening 1990 DTaP/Tdap/Td Vaccine (1 - Tdap) 01/30/1999 Varicella Vaccines (1 of 2 - 13+ 2-dose series) 01/30/2001 Hepatitis B Screening 01/30/2006 Regular Well Visit/Exam 18-64 01/30/2006 HPV Vaccines (1 - 3-dose SCDM series) 01/30/2015 Covid-19 Vaccine ( season) 2023 07/16/2020, 06/18/2020 Influenza Vaccine (#1) 2024 6, 02/17/2015, 02/25/2014, Additional history exists Pneumococcal vaccine <65 Aged Out No longer eligible based on patient's age to complete this topic Procedures Procedure Name Priority Date/Time Associated Diagnosis Comments ECG 12-LEAD Routine 11/28/2024 4:10 PM CDT Hypertension, unspecified type US ABDOMEN LIMITED Schedule Routine, Read Routine (OP Routine) 11/03/2024 9:19 AM CDT Endometriosis of anterior abdominal wall from Last 3 Months Results * ECG 12 lead (11/28/2024 4:10 PM CDT) 11/28/2024 4:08 PM CDT Narrative [facility] - 11/28/2024 5:05 PM CDT Vent Rate: 76 bpm RR Interval: 785 msec ME Interval: 130 msec QRS Duration: 89 msec QT Interval: 372 msec QTC Interval: 402 msec P-R-T Benton: 61 - 65 - 48 degrees IMPRESSION: SINUS RHYTHM NORMAL ECG Electronically Signed By: Terence Medrano MD Al Sher MD ECG ORDERABLES Final Result [facility] * US Abdomen Limited (11/03/2024 9:19 AM CDT) Anatomical Region Laterality Modality Abdomen N/A Ultrasound 11/12/2024 10:1 3 AM CDT Narrative 11/12/2024 10:21 AM CDT EXAM DESCRIPTION: US ABDOMEN LIMITED REASON FOR STUDY: other TECHNIQUE: Ultrasound of the left lower quadrant/pelvic wall. Grayscale and color Doppler images acquired. COMPARISON: 10/03/2019 CT FINDINGS: SOFT TISSUES: Heterogeneous lobulated anterior pelvic wall mass measuring 1.8 x 1.8 x 1.7 cm. Mass is reportedly near the scar. OTHER: No other significant findings. IMPRESSION: Indeterminate heterogeneous lobulated anterior pelvic wall mass measuring 1.8 cm. Differential considerations include endometrioma and metastatic disease. Consider correlation with tissue sampling or surgical excision. Consider MRI pelvis with and without contrast if there is clinical concern for underlying endometriosis. THIS IS AN ELECTRONICALLY VERIFIED FINAL REPORT 11/12/2024 10:21 AM - Electronically signed by Manpreet Almonte M.D. NS: NS Report ID: [id number] Reading Location: [id number] Procedure Note Manpreet Almonte MD - 11/12/2024 EXAM DESCRIPTION: US ABDOMEN LIMITED REASON FOR STUDY: other TECHNIQUE: Ultrasound of the left lower quadrant/pelvic wall. Grayscaleand color Doppler images acquired. COMPARISON: 10/03/2019 CT FINDINGS: SOFT TISSUES: Heterogeneous lobulated anterior pelvic wall mass measuring1.8 x 1.8 x 1.7 cm. Mass is reportedly near the scar. OTHER: No other significant findings. IMPRESSION: Indeterminate heterogeneous lobulated anterior pelvic wall mass measuring1.8 cm. Differential considerations include endometrioma and metastaticdisease. Consider correlation with tissue sampling or surgical excision. ConsiderMRI pelvis with and without contrast if there is clinical concern forunderlying endometriosis. THIS IS AN ELECTRONICALLY VERIFIED FINAL REPORT 11/12/2024 10:21 AM - Electronically signed by Manpreet Almonte M.D. NS: NS Report ID: [id number] Reading Location: [place] [address] Jen Melendez MD [facility] PROCEDURES Final Result from Last 3 Months Insurance [facility] [employer] Address: [facility] [id number] [place] [address] Advance Directives For more information, please contact: [phone] * Full Code (Latest Code Status on File) Date Activated Date Inactivated Comments 11/14/2019 7:18 AM 11/14/2019 1:13 PM * Full Code Date Activated Date Inactivated Comments 03/21/2019 12:43 PM 03/21/2019 7:03 PM Care Teams Environmental Technical Officer Relationship Specialty Start Date End Date Yessica Manning PA PCP - General 09/15/18
[2024-12-04] MEDS: LACTATED RINGERS 1,000 ML 30 ML IV CONT ×2 (07:00→10:57)
--- NOTE | 2024-12-04 08:08 | WPDANESEPPF ---
Anes - Initial Pre Proc Eval Procedure: Operation Date: 12/04/24 09:45 Proposed Procedures p Excision of Subcutaneous Mass of the Abdominal Wall - Jen Melendez MD Date/Time: 12/04/24 08:08 Surgeon: Jen Melendez MD Pre Op Diagnosis: Endometriosis Patient Data Age: 34 Gender: F Height: 1.57 m Weight: 61.2 kg Last Vital Signs Temp 36.1 C L 12/04/24 07:00 Pulse 84 12/04/24 07:00 Resp 16 12/04/24 07:00 BP 140/86 12/04/24 07:00 Pulse Ox 100 12/04/24 07:00 O2 Del Method Room Air 12/04/24 07:00 Allergies Allergy/AdvReac Type Severity Reaction Status Date / Time No Known Drug Allergies Allergy unknown Verified 12/04/24 07:28 Home Medications ?Medication ?Instructions ?Recorded ?Confirmed ?Type metoprolol succinate 25 mg 25 mg PO DAILY 11/02/24 12/04/24 History tablet,extended release 24 hr Lactobacillus acidophilus 10 10,000 mmu cells PO DAILY 11/23/24 12/04/24 History billion cell capsule (Probacap) Patient hx anesthesia problems: none Family hx anesthesia problems: none Results Review: All pre-operative results and documents have been reviewed as part of the pre-operative evaluation. [facility] Past Medical History Medical History (Updated 12/04/24 @ 08:09 by Dominick Whitney DO) Hypertension History of HPV infection IBS (irritable bowel syndrome) Anxiety and depression Surgical History Surgical History H/O LEEP 12/06/23 S/P bilateral breast reduction Delivery by section (06/18/21) placenta previa History of bunionectomy of left great toe (04/19/12) H/O colposcopy with cervical biopsy (01/15/11) colpo TAMIA l H/O colposcopy with cervical biopsy (04/24/15) colpo Benign H/O colposcopy with cervical biopsy (06/10/16) colposcopy ; Benign H/O colposcopy with cervical biopsy (01/27/17) colpo ; Benign H/O colposcopy with cervical biopsy (07/13/18) colposcopy Benign Family History Family History Father Hypertension Deafness congenital Mother Autoimmune hepatitis Deafness in left ear Grandparent Graves disease Primary lung cancer Grandparent Pancreatic cancer Sibling Ulcerative colitis Social History Social History (Updated 11/02/24 @ 14:15 by Carson Ravi MA) Smoking status: Never smoker Alcohol intake: current Drinks per week: 3 Alcohol use details: socially Substance use: never Substance use type: does not use Do You Feel Safe in your Home?: Yes Lack of Transportation: No Lack of Food: Never True Current Housing: I Have Housing Concerned About Future Housing: No Difficulty Paying Gas/Electric Bills: No Difficulty Paying for Meds: No Currently Unemployed: No Education: Associate Degree Difficulty w/ Childcare or Family Care: No Living arrangements: with family Additional living arrangements comments: spouse Occupation/Education: occupation 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 Gender identity (if verbalized by the patient): Female Sexual Orientation (if Verbalized by the Patient): Straight or Heterosexual Spiritual care concerns: No Anes - Eval Final PreProcedure Day of Procedure 12/04/24 08:08 Patient weight: normal Heart: regular rate and rhythm Lungs: clear to auscultation Airway: Mallampati scale class II Neurological: alert and oriented Last oral intake: >/= 8 hours ASA classification: II Emergent: no Anesthetic plan: proceed Anesthesia type and monitoring: general LMA and standard monitoring Results Review: All pre-operative results and documents have been reviewed as part of the pre-operative evaluation. Informed Consent: The patient's anesthetic plan and its attendant risks and benefits were discussed with the patient/family/POA. Questions were solicited and answers provided to the satisfaction of the patient/family/POA.
--- NOTE | 2024-12-04 08:47 | WPDHPUPDATE1 ---
History and Physical Update Update Date/Time: 12/04/24 08:47 History and Physical has been reviewed, including an updated exam of the patient. There are NO changes in the patient's condition. Risks, benefits, and alternatives have been discussed and questions answered. Patient agrees to proceed with excision of soft tissue/incisional mass.
[2024-12-04] MEDS: LIDO 1%/EPINEPHRINE 1:100,000 50 ML VIAL 20 ML INFILTRATE (09:57)
--- NOTE | 2024-12-04 10:30 | S_PTH ---
PATIENT: Bridget De La Torre LOC: [facility] U#:[id number] AGE/SX: 34/F ROOM: RE12/04/[address]: Jen Melendez MD : 1990 BED: DIS: 12/04/2024 SPEC #: [id number] RECD: 12/04/24 11:55 STATUS: SARY REQ #: [id number] BRANDYN: 12/04/24 10:[address]: Jen Melendez DEPT: [facility] Surgical RECD BY: Aminata Fitzgerald ENTERED: 12/04/24 11:56 SP TYPE: Surgical OTHR DR: Yessica Manning, PA-C Tissues: A - Mass Procedures: Hematoxylin and Eosin Stain Gross and Microscopic Level 3
--- NOTE | 2024-12-04 10:59 | W.PM.PROC2 ---
Procedure Note - Detailed Date of Procedure 12/04/24 Pre-op Diagnosis Endometriosis Post-op Diagnosis Same Procedure Performed Soft tissue/incision mass removal Surgeon Jen Melendez MD Ase Certified Technician Carlie Anesthesia General and Local (4cc of 1% lidocaine w/ epi) Findings 3x3cm firm, mobile mass at the left apex of her prior scar. Removed w/o issue; only in subcutaneous fat, fascia was not involved. Description of Procedure Bridget was counseled on all risks and benefits in detail. She was taken to the operating room where was placed under general anesthesia with an LMA in place without issue. She was then prepped and draped in the normal sterile fashion in the dorsal position with her arms outstretched on arm boards and a strap over her legs. She received 2g Ancef and a time out was performed. The area was infiltrated with local anesthesia. A small incision was made over the soft tissue mass and extended her old Pfannenstiel incision by approximately 3cm (total incision approximally 5cm). The mass was easily palpated and using Metzenbaum scissors, the mass was removed from the surrounding subcutaneous tissue; paying close attention to not disrupt the mass, but also to leave as much subcutaneous tissue as possible. Small bleeders were cauterized using the Bovie and slowly the mass was removed without complication and sent to pathology. The subcutaneous tissue was irrigated with 100cc of normal saline. The Ced's fascia was reapproximated using 0 Vicryl in a running fashion. The skin was then closed using 4-0 Monocryl in a running subcuticular fashion. A 4x4 gauze was placed over the incision and covered using a Tegaderm dressing. Sponge, lap, needle and instrument counts were correct at the end of the procedure x2. The patient was awoke from general anesthesia without complications. She tolerated the procedure well and was taken to recovery in a stable condition. Estimated Blood Loss 5 IV Fluids 1,000 Pathology Yes (abdominal wall soft tissue/incisional mass) Complications No immediate complications Condition Stable Disposition Same day [facility] Billing Surgery - Charge Forward: Surgery Billing
[2024-12-04] MEDS: fentaNYL CITRATE INJ (*CRX) 100 MCG/2 ML VIAL 25 MCG IV PUSH ×2 (11:22→11:48)
[2024-12-04 11:31] LABS: BEDSIDEPREGUCG Negative (Negative)
== END 2024-12-04 12:53 | disposition home or self-care (01) ==
PROVIDERS: PCP Physician Assistant; Visit Provider Obstetrics & Gynecology
PROC: (CPT 22902; principal; 2024-12-04 09:45)
DX: N80.C19 Endometriosis of the anterior abdominal wall, unspecified depth (principal); I10 Essential (primary) hypertension; K58.9 Irritable bowel syndrome, unspecified; F41.8 Other specified anxiety disorders; Z98.890 Other specified postprocedural states; Z80.1 Family history of malignant neoplasm of trachea, bronchus and lung; Z80.0 Family history of malignant neoplasm of digestive organs
CPT/HCPCS: 22902; 88304; A9270; J0690; J1100; J2004; J2250; J2405; J2704; J3010; J7120